=== PATIENT | male | born 1980 | race Caucasian/White ===

== ENCOUNTER 2017-09-26 16:25 | Emergency (ER) | payer MEDICAID, SELFPAY ==
[2017-09-26 16:26] VITALS: BP 115/75; PULSE 80; RESP 14; TEMP 37.2; O2SAT 100; BMI 28.6
--- NOTE | 2017-09-26 16:44 | RAD_ITS ---
STUDY: X-RAY CHEST REASON FOR EXAM: Male, 36 years old. Cough. TECHNIQUE: PA and lateral views of the chest. COMPARISON: Prior comparison studies are not available for review at this time. FINDINGS: The lungs are clear and hyperexpanded. There is no demonstrated pleural abnormality. Normal size heart. Normal mediastinum and shreya. There is prominence of the pulmonary hilar arteries without peripheral pulmonary vascular congestion. Normal visualized aortic arch and descending thoracic aorta. There is straightening of the normal kyphosis of the thoracic spine. Normal visualized ribs, clavicles, and shoulders. There is no demonstrated abnormality of the visualized soft tissue structures of the upper abdomen. RAD/Chest PA and Lateral IMPRESSION: No radiographic evidence of acute cardiopulmonary disease. Electronically Signed: Yolanda Mars MD at 17:18 EDT , Service support ,
--- NOTE | 2017-09-26 16:46 | ED.VISSUMM ---
- ER Visit Summary Date of Service: 09/26/17 Chief Complaint: Cough History of Present Illness: The patient is a 36 M with no primary care physician. Reports he has a cough began 1 week ago. Is productive of white sputum without blood. He complains of subjective fever, chills. He has a sore throat at serial 10 severity and clear rhinorrhea. He reports he does have moderate to severe shortness of breath. He has been wheezing. He does not have an inhaler. He began losing his voice yesterday. He also complains of diffuse myalgias and a headache that is 2 out of 10 in severity. Physical Examination: Vitals: Stable. Afebrile. General: Well-nourished and well-developed. Head: Normocephalic atraumatic. HEENT: Pharyngeal erythema. No tonsillar exudate or enlargement. No peritonsillar abscess. Neck: Supple, no lymphadenopathy. No JVD. Nontender. Cardiovascular: Regular rate and rhythm. No murmurs. Respiratory: No respiratory distress. Minimal wheezing bilaterally. Abdominal: Soft, nontender, nondistended, normal bowel sounds. No guarding, rebound, or peritoneal signs. Back: Nontender. Extremities: Nontender, no edema. Skin: Normal color, no rash. Neurologic: Alert and oriented ?3. Cranial nerves II through XII are intact. Normal strength and sensation. Psych: Normal affect. Test Results: Chest x-ray shows no acute disease. Patient refused IV, labs, influenza test. Emergency Department Course and Treatment: Patient was treated Kenalog IM and albuterol MDI. He was given Zofran and ibuprofen. Treatment Plan: Patient will be discharged prescription for Zofran. Instructed on symptomatic care. Push fluids. Alternate Tylenol and/or ibuprofen for fever and myalgias. [facility] if not improving. Return to the emergency department for any worsening symptoms. Disposition: To home in improved and stable condition. Impression: 1. URI with bronchospasm. 2. Tobacco abuse. This note was generated with [employer] dictation software. It may contain incorrect words, spelling, and punctuation that were not noted in review of the chart prior to signing ED Disposition - Plan for ED Patient: Disposition: Home or Assisted Living Chief Complaint: Cold Sx Instructions: ED Upper Resp Infec No Abx Tx Prescriptions: Ondansetron [Zofran Odt] 4 mg PO Q8H PRN PRN #10 tablet PRN Reason: Nausea Referrals: Marlena Alston [NON-STAFF] - 1 Week if not improving
--- NOTE | 2017-09-26 16:50 | ED.DCSUM_ITS ---
- ER Visit Summary Date of Service: 09/26/17 Chief Complaint: Cough History of Present Illness: The patient is a 36 M with no primary care physician. Reports he has a cough began 1 week ago. Is productive of white sputum without blood. He complains of subjective fever, chills. He has a sore throat at serial 10 severity and clear rhinorrhea. He reports he does have moderate to severe shortness of breath. He has been wheezing. He does not have an inhaler. He began losing his voice yesterday. He also complains of diffuse myalgias and a headache that is 2 out of 10 in severity. Physical Examination: Vitals: Stable. Afebrile. General: Well-nourished and well-developed. Head: Normocephalic atraumatic. HEENT: Pharyngeal erythema. No tonsillar exudate or enlargement. No peritonsillar abscess. Neck: Supple, no lymphadenopathy. No JVD. Nontender. Cardiovascular: Regular rate and rhythm. No murmurs. Respiratory: No respiratory distress. Minimal wheezing bilaterally. Abdominal: Soft, nontender, nondistended, normal bowel sounds. No guarding, rebound, or peritoneal signs. Back: Nontender. Extremities: Nontender, no edema. Skin: Normal color, no rash. Neurologic: Alert and oriented ?3. Cranial nerves II through XII are intact. Normal strength and sensation. Psych: Normal affect. Test Results: Chest x-ray shows no acute disease. Patient refused IV, labs, influenza test. Emergency Department Course and Treatment: Patient was treated Kenalog IM and albuterol MDI. He was given Zofran and ibuprofen. Treatment Plan: Patient will be discharged prescription for Zofran. Instructed on symptomatic care. Push fluids. Alternate Tylenol and/or ibuprofen for fever and myalgias. [facility] if not improving. Return to the emergency department for any worsening symptoms. Disposition: To home in improved and stable condition. Impression: 1. URI with bronchospasm. 2. Tobacco abuse. This note was generated with [employer] dictation software. It may contain incorrect words, spelling, and punctuation that were not noted in review of the chart prior to signing ED Disposition - Plan for ED Patient: Disposition: Home or Assisted Living Chief Complaint: Cold Sx Instructions: ED Upper Resp Infec No Abx Tx Prescriptions: Ondansetron [Zofran Odt] 4 mg PO Q8H PRN PRN #10 tablet PRN Reason: Nausea Referrals: Marlena Al[facility] [NON-STAFF] - 1 Week if not improving
[2017-09-26] MEDS: Ondansetron ODT 4 MG Tablet PO (16:56)
[2017-09-26] MEDS: Ibuprofen 600 MG Tablet PO (16:56)
[2017-09-26] MEDS: Triamcinolone Acetonide 40 MG/ML Vial 80 MG IM (16:56)
== END 2017-09-26 17:54 | disposition home or self-care (01) ==
PROVIDERS: Emergency Provider Emergency Medicine
DX: J06.9 Acute upper respiratory infection, unspecified (principal); J98.01 Acute bronchospasm; Z72.0 Tobacco use
CPT/HCPCS: 71046; 96372; 99282